=== PATIENT | female | born 1975 ===

== ENCOUNTER 2017-08-30 10:49 | Emergency (ER) | payer OTHER ==
[2017-08-30 12:16] VITALS: BP 113/70; PULSE 77; RESP 16; TEMP 98; O2SAT 100
[2017-08-30] MEDS ORDERED: Albuterol-Ipratrop 3 mg / 0.5 (3 ml) UD INH STA (13:04)
[2017-08-30] MEDS ORDERED: Albuterol-Ipratrop 3 mg / 0.5 (3 ml) UD ONE (13:16)
--- NOTE | 2017-08-30 13:23 | ED PDOC ---
HPI: CCC, URI, Sore Throat Time Seen by Provider: 08/30/17 13:00 Chief Complaint (Nursing): Flu-like Symptoms Chief Complaint (Provider): Cough History Per: Patient History/Exam Limitations: no limitations Additional Complaint(s): Patient is a 42 y/o female with no significant past medical history presenting to the emergency department for a cough ongoing for three days with five episodes of vomiting yesterday. Notes having abdominal pain when coughing and reports being uncertain about whether shes had a fever. Also notes being able to tolerate PO intake today. Denies any other complaints. PCP: none provided. Past Medical History Reviewed: Historical Data, Nursing Documentation, Vital Signs Vital Signs: Last Vital Signs Temp 98.0 F 08/30/17 12:13 Pulse 77 08/30/17 12:13 Resp 16 08/30/17 12:13 BP 113/70 08/30/17 12:13 Pulse Ox 100 08/30/17 13:28 - Surgical History Surgical History: Cholecystectomy, - Family History Family History: States: No Known Family Hx - Immunization History Hx Tetanus Toxoid Vaccination: No Hx Influenza Vaccination: No Hx Pneumococcal Vaccination: No - Home Medications Home Medications: Ambulatory Orders Medication Instructions Recorded Meclizine HCl [Meclizine HCl] 1 tab PO Q6 PRN #20 tab 12/04/14 Ondansetron [Zofran Odt] 4 mg PO Q6 PRN #12 odt 12/04/14 Cyclobenzaprine [Cyclobenzaprine 10 mg PO TID PRN #15 tab 02/03/16 HCl] Ibuprofen [Motrin] 600 mg PO Q6H PRN #20 tab 02/03/16 Cyclobenzaprine [Cyclobenzaprine 10 mg PO BID #14 tab 02/12/16 HCl] Tramadol HCl [Ultram] 50 mg PO Q6 #15 tab 02/12/16 Acetaminophen [Acetaminophen Extra 2 tab PO Q6 PRN #24 tablet 08/30/17 Strength] Albuterol HFA [Ventolin HFA 90 2 puff IH [id number] PRN #1 inh 08/30/17 mcg/actuation (8 g)] Oseltamivir Phosphate [Tamiflu] 75 mg PO BID #9 capsule 08/30/17 Ranitidine HCl [Zantac 75] 75 mg PO Q12 PRN #10 tablet 08/30/17 - Allergies Allergies/Adverse Reactions: Allergies Allergy/AdvReac Type Severity Reaction Status Date / Time prednisone Allergy RASH Verified 02/12/16 13:28 Review of Systems ROS Statement: Except As Marked, All Systems Reviewed And Found Negative Respiratory: Positive for: Cough Gastrointestinal: Positive for: Vomiting (5 episodes), Abdominal Pain (when coughing) Physical Exam - Reviewed Nursing Documentation Reviewed: Yes Vital Signs Reviewed: Yes - Physical Exam Appears: Positive for: Well, Non-toxic, No Acute Distress Head Exam: Positive for: ATRAUMATIC, NORMAL INSPECTION, NORMOCEPHALIC Skin: Positive for: Normal Color, Warm, Dry Eye Exam: Positive for: Normal appearance Neck: Positive for: Normal, Supple Cardiovascular/Chest: Positive for: Regular Rate, Rhythm Respiratory: Positive for: Rhonchi (bilaterally). Negative for: Accessory Muscle Use, Respiratory Distress Gastrointestinal/Abdominal: Positive for: Normal Exam, Soft. Negative for: Tenderness Extremity: Positive for: Normal ROM. Negative for: Pedal Edema Neurologic/Psych: Positive for: Alert, Oriented (x3) - Laboratory Results Urine POC: Negative - ECG O2 Sat by Pulse Oximetry: 100 (RA) Pulse Ox Interpretation: Normal Medical Decision Making Medical Decision Making: Time: 13:04 Initial impression: Cough Initial plan: ED Urine Albuterol/Ipratropium 3 mL INH Toradol 30 mg IM Oseltamivir 75 mg PO Peak flow assessment pre and post treatment Scribe Attestation: Documented by Jennifer Zuniga, acting as a scribe for ISRAEL Goel. Provider Scribe Attestation: All medical record entries made by the Scribe were at my direction and personally dictated by me. I have reviewed the chart and agree that the record accurately reflects my personal performance of the history, physical exam, medical decision making, and the department course for this patient. I have also personally directed, reviewed, and agree with the discharge instructions and disposition. Disposition - Clinical Impression Clinical Impression: Influenza - Patient ED Disposition Is Patient to be Admitted: No - Disposition [facility]errals: [facility] [Outside] Disposition: Routine/Home Disposition Time: 13:43 Condition: FAIR Prescriptions: Albuterol HFA [Ventolin HFA 90 mcg/actuation (8 g)] 2 puff IH [id number] PRN #1 inh PRN Reason: Cough Acetaminophen [Acetaminophen Extra Strength] 2 tab PO Q6 PRN #24 tablet PRN Reason: Fever >100.4 F Oseltamivir Phosphate [Tamiflu] 75 mg PO BID #9 capsule Ranitidine HCl [Zantac 75] 75 mg PO Q12 PRN #10 tablet PRN Reason: Pain, Moderate (4-7) Instructions: Influenza (ED) Forms: [facility] ED School/Work Excuse Print Language: SLOVAK
--- NOTE | 2017-08-31 08:31 | CARD ---
APPROVED REPORT EKG Measurement Heart [id number] <Conclusion> Normal sinus rhythm Low voltage QRS Borderline ECG
== END 2017-08-30 13:52 | disposition home or self-care (01) ==
LOC: H.ER 10:49
DX: J11.1 Influenza due to unidentified influenza virus with other respiratory manifestations (principal)
CPT/HCPCS: 81025; 93005; 96372; 99281; J1885